=== PATIENT | female | born 1990 | race African-American/Black ===

== ENCOUNTER 2017-07-19 19:14 | Inpatient (IN) | payer MEDICAID ==
[~2017-07-19] VITALS: Ht 160 cm; Wt 78.9 kg
[2017-07-19 19:15] VITALS: BP_SYST 110; BP_SYST 124; BP_DIAS 62; BP_DIAS 76
[2017-07-19 19:20] VITALS: BP 117/63
[2017-07-19 19:25] VITALS: BP 112/52
[2017-07-19 20:07] LABS: BASOPHILS % (AUTO) 0.4 % (0.0-2.0); EOSINOPHILS % (AUTO) 0.4 % (0.0-3.0); HEMATOCRIT 29.1 % (37.0-47.0); HEMOGLOBIN 9.1 G/DL (12.0-16.0); LYMPHOCYTES % (AUTO) 20.9 % (20.0-45.0); MEAN CORPUSCULAR VOLUME 93 FL (80-99); MONOCYTES % (AUTO) 6.3 % (1.0-10.0); NEUTROPHILS % (AUTO) 72.1 % (45.0-75.0); PLATELET COUNT 169 K/UL (150-450); RED BLOOD COUNT 3.14 M/UL (4.20-5.40); RED CELL DISTRIBUTION WIDTH 11.5 % (11.6-14.8); WHITE BLOOD COUNT 8.2 K/UL (4.8-10.8)
[2017-07-19 20:13] LABS: APPEARANCE,URINE CLEAR; BILIRUBIN, URINE NEGATIVE (NEGATIVE); COLOR,URINE PALE YELLOW; GLUCOSE, URINE (UA) NEGATIVE (NEGATIVE); KETONES,URINE 1+ (NEGATIVE); LEUKOCYTE ESTERASE ,URINE NEGATIVE (NEGATIVE); NITRITE,URINE NEGATIVE (NEGATIVE); PH,URINE 6 (4.5-8.0); PROTEIN,URINE NEGATIVE (NEGATIVE); UROBILINOGEN,URINE NORMAL MG/DL (0.0-1.0)
[2017-07-19 20:26] LABS: ANION GAP 7 mmol/L (5-15); BLOOD UREA NITROGEN 38 mg/dL (7-18); CALCIUM 7.1 MG/DL (8.5-10.1); CARBON DIOXIDE 24 MMOL/L (21-32); CHLORIDE 107 MMOL/L (98-107); POTASSIUM 3.8 MMOL/L (3.5-5.1); SODIUM 138 MMOL/L (136-145)
[2017-07-19 20:30] LABS: ALANINE AMINOTRANSFERASE 15 U/L (12-78); ALBUMIN 3.1 G/DL (3.4-5.0); ALBUMIN/GLOBULIN RATIO 1.1 (1.0-2.7); ALKALINE PHOSPHATASE 57 U/L (46-116); ASPARTATE AMINO TRANSFERASE 14 U/L (15-37); BILIRUBIN,TOTAL 0.4 MG/DL (0.2-1.0); CREATINE KINASE 161 U/L (26-308)
[2017-07-19 21:15] VITALS: BP 117/63
--- NOTE | 2017-07-19 22:41 | Emergency Room Report ---
History of Present Illness General Chief Complaint: Syncope Source: Patient, Family Member, EMS Present Illness HPI The patient presents with near syncope. She had just urinated and started to feel dizziness on the toilet with a hot feeling in her face. She got up and things went black for her but then she laid down and came to immediately. She' s had syncope in the past after urinating. Today she's been vomiting blood and has been having loose dark stools. She denies any epigastric pain. She's status post gastric bypass surgery. She apparently had an iron infusion in the last few months. 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 The patient denies any dyspnea chest pain, palpitations, dysuria. Her last period was normal. Slight headache 5/10, aching, diffuse and not radiating. Denies diabetes, HTN. Allergies: Coded Allergies: SULFA (SULFONAMIDE ANTIBIOTICS) (Verified Allergy, Unknown, 07/19/17) Patient History Past Medical History: see triage record Past Surgical History: other - Gastric bypass with revision 2015 Social History: Denies: smoking, alcohol use, drug use Social History Narrative with family Last Menstrual Period: 2 weeks Now: No Reviewed Nursing Documentation: PMH: Agreed, PSxH: Agreed Nursing Documentation-PMH Past Medical History: No Stated History Review of Systems All Other Systems: negative except mentioned in HPI Physical Exam Vital Signs Date Time Temp Pulse Resp B/P (MAP) Pulse Ox O2 Delivery O2 Flow Rate FiO2 07/19/17 19:10 98.4 102 14 110/76 99 Room Air Sp02 EP Interpretation: reviewed, normal General Appearance: well appearing, no apparent distress, GCS 15 Head: normocephalic Eyes: bilateral eye normal inspection, bilateral eye PERRL, bilateral eye EOMI ENT: moist mucus membranes Neck: supple Respiratory: lungs clear, normal breath sounds Cardiovascular #1: regular rate, rhythm Cardiovascular #2: 2+ radial (R) Gastrointestinal: normal inspection, normal bowel sounds, non tender, no mass, non-distended Rectal: other - refused rectal Genitourinary: no CVA tenderness Musculoskeletal: back normal, gait/station normal, normal range of motion Neurologic: alert, oriented x3, motor strength/tone normal, sensory intact, cerebellar normal, normal gait, speech normal Psychiatric: mood/affect normal Skin: normal inspection, warm/dry Medical Decision Making Diagnostic Impression: Primary Impression: Near syncope Additional Impressions: GI bleed Qualified Codes: K92.2 - Gastrointestinal hemorrhage, unspecified Anemia Qualified Codes: D64.9 - Anemia, unspecified History of gastric bypass ER Course The patient presents with near syncope while urinating with h/o vomiting blood. Differential includes GI bleed, post micturition syncope, vasovagal arrhythmia versus others. The patient will be evaluated EKG, chest x-ray, laboratory. The patient was treated with IV hydration. Non-focal neurologic exam, CT not indicated. EKG is unremarkable. H&H is quite substantially lower than previous. The patient is reluctant and refuses a rectal exam. She also has not given us a stool sample. History of vomiting blood will be treated with Pepcid. Second H&H's dropped substantially with near syncope - the patient is admitted into the hospital to make sure GI bleed is stabilized. As VS stable and not vomiting blood, will hold off on transfusion. Although risks and benefits explained to patient and mother (she has had transfusions around her surgery in the past). Discussed that if VS unstable or H/H with severe drop, might need transfusion. Treated with protonix also. MOSS treated with tylenol with improvement. Admit med Dr. Awad. Laboratory Tests Test 07/19/17 19:40 White Blood Count 8.2 K/UL (4.8-10.8) Red Blood Count 3.14 M/UL (4.20-5.40) L Hemoglobin 9.1 G/DL (12.0-16.0) L Hematocrit 29.1 % (37.0-47.0) L Mean Corpuscular Volume 93 FL (80-99) Mean Corpuscular Hemoglobin 29.0 PG (27.0-31.0) Mean Corpuscular Hemoglobin Concent 31.3 G/DL (32.0-36.0) L Red Cell Distribution Width 11.5 % (11.6-14.8) L Platelet Count 169 K/UL (150-450) Mean Platelet Volume 7.6 FL (6.5-10.1) Neutrophils (%) (Auto) 72.1 % (45.0-75.0) Lymphocytes (%) (Auto) 20.9 % (20.0-45.0) Monocytes (%) (Auto) 6.3 % (1.0-10.0) Eosinophils (%) (Auto) 0.4 % (0.0-3.0) Basophils (%) (Auto) 0.4 % (0.0-2.0) Prothrombin Time 10.9 SEC (9.30-11.50) Prothrombin Time INR 1.0 (0.9-1.1) PTT 23 SEC (23-33) Urine Color Pale yellow Urine Appearance Clear Urine pH 6 (4.5-8.0) Urine Specific [place] 1.010 (1.005-1.035) Urine Protein Negative (NEGATIVE) Urine Glucose (UA) Negative (NEGATIVE) Urine Ketones 1+ (NEGATIVE) H Urine Occult Blood Negative (NEGATIVE) Urine Nitrite Negative (NEGATIVE) Urine Bilirubin Negative (NEGATIVE) Urine Urobilinogen Normal MG/DL (0.0-1.0) Urine Leukocyte Esterase Negative (NEGATIVE) Urine HCG, Qualitative Negative Sodium Level 138 MMOL/L (136-145) Potassium Level 3.8 MMOL/L (3.5-5.1) Chloride Level 107 MMOL/L (98-107) Carbon Dioxide Level 24 MMOL/L (21-32) Anion Gap 7 mmol/L (5-15) Blood Urea Nitrogen 38 mg/dL (7-18) H Creatinine 1.0 MG/DL (0.55-1.30) Estimate Glomerular Filtration Rate > 60 mL/min (>60) Glucose Level 92 MG/DL (74-106) Calcium Level 7.1 MG/DL (8.5-10.1) L Total Bilirubin 0.4 MG/DL (0.2-1.0) Aspartate Amino Transferase (AST) 14 U/L (15-37) L Alanine Aminotransferase (ALT) 15 U/L (12-78) Alkaline Phosphatase 57 U/L (46-116) Total Creatine Kinase 161 U/L (26-308) Troponin I 0.007 ng/mL (0.000-0.056) Total Protein 5.9 G/DL (6.4-8.2) L Albumin 3.1 G/DL (3.4-5.0) L Globulin 2.8 g/dL Albumin/Globulin Ratio 1.1 (1.0-2.7) Urine Opiates Screen Negative (NEGATIVE) Urine Barbiturates Screen Negative (NEGATIVE) Phencyclidine (PCP) Screen Negative (NEGATIVE) Urine Amphetamines Screen Negative (NEGATIVE) Urine Benzodiazepines Screen Negative (NEGATIVE) Urine Cocaine Screen Negative (NEGATIVE) Urine Marijuana (THC) Screen Negative (NEGATIVE) EKG Diagnostic Results Rate: normal Rhythm: NSR ST Segments: no acute changes Rhythm Strip Diag. Results EP Interpretation: yes Rhythm: NSR, no PVC's, no ectopy Last Vital Signs Date Time Temp Pulse Resp B/P (MAP) Pulse Ox O2 Delivery O2 Flow Rate FiO2 07/20/17 04:00 97.9 75 21 106/56 100 07/19/17 23:55 Room Air Status: improved Disposition: ADMITTED INPATIENT Condition: Serious Referrals: JENNIFER DESHPANDE,REFERRING (PCP) Julio Cesar Leiva M.D. Jul 19, 2017 22:40
[2017-07-19] MEDS ORDERED: EXCEDRIN MIGRA1 EAC1 PO (23:06)
[2017-07-19 23:15] VITALS: BP 111/71
[2017-07-19 23:15] LABS: BASOPHILS % (AUTO) 0.5 % (0.0-2.0); EOSINOPHILS % (AUTO) 0.3 % (0.0-3.0); HEMATOCRIT 25.7 % (37.0-47.0); HEMOGLOBIN 8.6 G/DL (12.0-16.0); LYMPHOCYTES % (AUTO) 33.3 % (20.0-45.0); MEAN CORPUSCULAR VOLUME 92 FL (80-99); MONOCYTES % (AUTO) 7.4 % (1.0-10.0); NEUTROPHILS % (AUTO) 58.4 % (45.0-75.0); PLATELET COUNT 165 K/UL (150-450); RED BLOOD COUNT 2.81 M/UL (4.20-5.40); WHITE BLOOD COUNT 6.6 K/UL (4.8-10.8)
[2017-07-19 23:55] VITALS: BP 117/62
[2017-07-20] VITALS: BP 115/68
[2017-07-20 04:00] VITALS: BP 106/56
[2017-07-20] MEDS ORDERED: Pantoprazole Inj IVP STA (07:03)
[2017-07-20] MEDS ORDERED: D5 1/2NS 1,000 ML IV SCH (07:30)
[2017-07-20] MEDS ORDERED: Morphine Sulfate 2mg/ml Inj IVP PRN (07:30)
[2017-07-20] MEDS ORDERED: Metoclopramide 10mg/2ml Inj IVP PRN (07:30)
[2017-07-20] MEDS ORDERED: LORazepam Inj 2mg/ml 1ml IV PRN (07:30)
[2017-07-20] MEDS ORDERED: Mylanta II UD 30ml ORAL PRN (07:30)
[2017-07-20] MEDS ORDERED: Nitroglycerin Subl 0.4mg tab SL PRN (07:30)
[2017-07-20 08:00] VITALS: BP 102/52
--- NOTE | 2017-07-20 08:10 | General Progress Note ---
Assessment/Plan Problem List: (1) GI bleed ICD Codes: K92.2 - Gastrointestinal hemorrhage, unspecified SNOMED: 46725832 Qualifiers: Qualified Codes: K92.2 - Gastrointestinal hemorrhage, unspecified (2) Anemia ICD Codes: D64.9 - Anemia, unspecified SNOMED: 192129825 Qualifiers: Qualified Codes: D64.9 - Anemia, unspecified (3) Near syncope ICD Codes: R55 - Syncope and collapse SNOMED: 749967188 (4) History of gastric bypass ICD Codes: Z98.84 - Bariatric surgery status SNOMED: 975050260 Assessment/Plan ppi transfuse if hgb less than 7 EGD in am Subjective ROS Limited/Unobtainable: Yes Allergies: Coded Allergies: SULFA (SULFONAMIDE ANTIBIOTICS) (Verified Allergy, Unknown, 07/19/17) Subjective no event Objective Last 24 Hour Vital Signs Date Time Temp Pulse Resp B/P (MAP) Pulse Ox O2 Delivery O2 Flow Rate FiO2 07/20/17 04:00 97.9 75 21 106/56 100 07/20/17 00:00 97.8 74 21 115/68 100 07/19/17 23:55 98.2 88 16 117/62 99 Room Air 07/19/17 23:55 98.4 88 16 117/62 99 Room Air 07/19/17 23:33 98.4 07/19/17 23:15 98.4 82 18 111/71 99 Room Air 07/19/17 21:15 98.4 80 16 117/63 99 Room Air 07/19/17 19:25 112/52 07/19/17 19:20 16 117/63 07/19/17 19:15 98.4 76 14 110/76 99 Room Air 07/19/17 19:15 98.4 81 18 124/62 99 Room Air 07/19/17 19:10 98.4 102 14 110/76 99 Room Air Intake and Output 07/19/17 07/20/17 19:00 07:00 Intake Total 1000 ml Balance 1000 ml Intake IV Total 1000 ml # Voids 3 # Bowel Movements 1 Laboratory Tests 07/19/17 19:40: White Blood Count 8.2, Red Blood Count 3.14L, Hemoglobin 9.1L, Hematocrit 29.1L , Mean Corpuscular Volume 93, Mean Corpuscular Hemoglobin 29.0, Mean Corpuscular Hemoglobin Concent 31.3L, Red Cell Distribution Width 11.5L, Platelet Count 169, Mean Platelet Volume 7.6, Neutrophils (%) (Auto) 72.1, Lymphocytes (%) (Auto) 20.9, Monocytes (%) (Auto) 6.3, Eosinophils (%) (Auto) 0.4, Basophils (%) (Auto) 0.4, Prothrombin Time 10.9, Prothromb Time International Ratio 1.0, Activated Partial Thromboplast Time 23, Urine Color Pale yellow, Urine Appearance Clear, Urine pH 6, Urine Specific [place] 1.010, Urine Protein Negative, Urine Glucose (UA) Negative, Urine Ketones 1+H, Urine Occult Blood Negative, Urine Nitrite Negative, Urine Bilirubin Negative, Urine Urobilinogen Normal, Urine Leukocyte Esterase Negative, Urine HCG, Qualitative Negative, Sodium Level 138, Potassium Level 3.8, Chloride Level 107, Carbon Dioxide Level 24, Anion Gap 7, Blood Urea Nitrogen 38H, Creatinine 1.0, Estimat Glomerular Filtration Rate > 60, Glucose Level 92, Calcium Level 7.1L, Total Bilirubin 0.4, Aspartate Amino Transf (AST/SGOT) 14L, Alanine Aminotransferase ( ALT/SGPT) 15, Alkaline Phosphatase 57, Total Creatine Kinase 161, Troponin I 0.007, Total Protein 5.9L, Albumin 3.1L, Globulin 2.8, Albumin/Globulin Ratio 1.1, Urine Opiates Screen Negative, Urine Barbiturates Screen Negative, Phencyclidine (PCP) Screen Negative, Urine Amphetamines Screen Negative, Urine Benzodiazepines Screen Negative, Urine Cocaine Screen Negative, Urine Marijuana (THC) Screen Negative 07/19/17 22:50: White Blood Count 6.6, Red Blood Count 2.81L, Hemoglobin 8.6L, Hematocrit 25.7L , Mean Corpuscular Volume 92, Mean Corpuscular Hemoglobin 30.7, Mean Corpuscular Hemoglobin Concent 33.5, Red Cell Distribution Width 12.0, Platelet Count 165, Mean Platelet Volume 8.1, Neutrophils (%) (Auto) 58.4, Lymphocytes (% ) (Auto) 33.3, Monocytes (%) (Auto) 7.4, Eosinophils (%) (Auto) 0.3, Basophils ( %) (Auto) 0.5 Height (Feet): 5 Height (Inches): 3.00 Weight (Pounds): 174 General Appearance: alert EENT: normal ENT inspection Neck: supple Cardiovascular: normal rate Respiratory/Chest: lungs clear Abdomen: normal bowel sounds, non tender, soft JANETH RANGEL Jul 20, 2017 08:10
--- NOTE | 2017-07-20 08:41 | History and Physical ---
History of Present Illness General Date patient seen: Jul 20, 2017 Time patient seen: 08:00 Reason for Hospitalization: pre-syncope Present Illness HPI 27 y/old female with hx of gastric bypass presented after near syncopal episode at home Patient reported being lightheaded and dizzy, hot flushes in the face, almost blackout in the bathroom, reported vomiting with hematemesis and dark loose stool patient was treated in the past for anemia with IV infusion denied f/c/ denied abdominal pain no CP no SOB admitted to 11/20 in ED VSS were stable , BP 110/76 anemic-9.1/29.1 UA negative, urine test negative urine tox screen negative no leukocytosis, elevated BUN-38 patient [facility] Allergies: Coded Allergies: SULFA (SULFONAMIDE ANTIBIOTICS) (Verified Allergy, Unknown, 07/19/17) Medication History Scheduled Aspirin/Acetaminophen/Caffeine (Excedrin Migraine Caplet), 1 EACH PO BID, ( Reported) Patient History History Provided By: Patient Healthcare decision maker self Resuscitation status Advanced Directive on File Past Medical/Surgical History Past Medical/Surgical History: (1) History of gastric bypass (2) Anemia Review of Systems Constitutional: Reports: weakness Eye: Reports: no symptoms ENT: Reports: no symptoms Respiratory: Reports: no symptoms Cardiovascular: Reports: no symptoms Gastrointestinal: Reports: see HPI Genitourinary: Reports: no symptoms Musculoskeletal: Reports: no symptoms Skin: Reports: no symptoms Psychiatric: Reports: no symptoms Neurological: Reports: see HPI Endocrine: Reports: no symptoms Hematologic/Lymphatic: Reports: anemia Physical Exam General Appearance: no apparent distress, alert Lines, tubes and drains: peripheral HEENT: normocephalic, atraumatic, anicteric Neck: non-tender, supple Respiratory/Chest: lungs clear, no respiratory distress, no accessory muscle use Cardiovascular/Chest: normal peripheral pulses, normal rate, regular rhythm, no JVD Abdomen: normal bowel sounds, non tender, soft Extremities: normal range of motion, non-tender, no calf tenderness, normal capillary refill Skin Exam: warm/dry Neurologic: heading maker II-XII grossly normal, no motor/sensory deficits, alert, oriented x 3, responsive, normal mood/affect Musculoskeletal: normal muscle bulk Last 24 Hour Vital Signs Date Time Temp Pulse Resp B/P (MAP) Pulse Ox O2 Delivery O2 Flow Rate FiO2 07/20/17 08:00 97.9 76 19 102/52 100 07/20/17 04:00 97.9 75 21 106/56 100 07/20/17 00:00 97.8 74 21 115/68 100 07/19/17 23:55 98.2 88 16 117/62 99 Room Air 07/19/17 23:55 98.4 88 16 117/62 99 Room Air 07/19/17 23:33 98.4 07/19/17 23:15 98.4 82 18 111/71 99 Room Air 07/19/17 21:15 98.4 80 16 117/63 99 Room Air 07/19/17 19:25 112/52 07/19/17 19:20 16 117/63 07/19/17 19:15 98.4 76 14 110/76 99 Room Air 07/19/17 19:15 98.4 81 18 124/62 99 Room Air 07/19/17 19:10 98.4 102 14 110/76 99 Room Air Intake and Output 07/19/17 07/20/17 19:00 07:00 Intake Total 1000 ml Balance 1000 ml Intake IV Total 1000 ml # Voids 3 # Bowel Movements 1 Laboratory Tests Test 07/19/17 19:40 07/19/17 22:50 White Blood Count 8.2 K/UL (4.8-10.8) 6.6 K/UL (4.8-10.8) Red Blood Count 3.14 M/UL (4.20-5.40) L 2.81 M/UL (4.20-5.40) L Hemoglobin 9.1 G/DL (12.0-16.0) L 8.6 G/DL (12.0-16.0) L Hematocrit 29.1 % (37.0-47.0) L 25.7 % (37.0-47.0) L Mean Corpuscular Volume 93 FL (80-99) 92 FL (80-99) Mean Corpuscular Hemoglobin 29.0 PG (27.0-31.0) 30.7 PG (27.0-31.0) Mean Corpuscular Hemoglobin Concent 31.3 G/DL (32.0-36.0) L 33.5 G/DL (32.0-36.0) Red Cell Distribution Width 11.5 % (11.6-14.8) L 12.0 % (11.6-14.8) Platelet Count 169 K/UL (150-450) 165 K/UL (150-450) Mean Platelet Volume 7.6 FL (6.5-10.1) 8.1 FL (6.5-10.1) Neutrophils (%) (Auto) 72.1 % (45.0-75.0) 58.4 % (45.0-75.0) Lymphocytes (%) (Auto) 20.9 % (20.0-45.0) 33.3 % (20.0-45.0) Monocytes (%) (Auto) 6.3 % (1.0-10.0) 7.4 % (1.0-10.0) Eosinophils (%) (Auto) 0.4 % (0.0-3.0) 0.3 % (0.0-3.0) Basophils (%) (Auto) 0.4 % (0.0-2.0) 0.5 % (0.0-2.0) Prothrombin Time 10.9 SEC (9.30-11.50) Prothromb Time International Ratio 1.0 (0.9-1.1) Activated Partial Thromboplast Time 23 SEC (23-33) Urine Color Pale yellow Urine Appearance Clear Urine pH 6 (4.5-8.0) Urine Specific [place] 1.010 (1.005-1.035) Urine Protein Negative (NEGATIVE) Urine Glucose (UA) Negative (NEGATIVE) Urine Ketones 1+ (NEGATIVE) H Urine Occult Blood Negative (NEGATIVE) Urine Nitrite Negative (NEGATIVE) Urine Bilirubin Negative (NEGATIVE) Urine Urobilinogen Normal MG/DL (0.0-1.0) Urine Leukocyte Esterase Negative (NEGATIVE) Urine HCG, Qualitative Negative Sodium Level 138 MMOL/L (136-145) Potassium Level 3.8 MMOL/L (3.5-5.1) Chloride Level 107 MMOL/L (98-107) Carbon Dioxide Level 24 MMOL/L (21-32) Anion Gap 7 mmol/L (5-15) Blood Urea Nitrogen 38 mg/dL (7-18) H Creatinine 1.0 MG/DL (0.55-1.30) Estimat Glomerular Filtration Rate > 60 mL/min (>60) Glucose Level 92 MG/DL (74-106) Calcium Level 7.1 MG/DL (8.5-10.1) L Total Bilirubin 0.4 MG/DL (0.2-1.0) Aspartate Amino Transf (AST/SGOT) 14 U/L (15-37) L Alanine Aminotransferase (ALT/SGPT) 15 U/L (12-78) Alkaline Phosphatase 57 U/L (46-116) Total Creatine Kinase 161 U/L (26-308) Troponin I 0.007 ng/mL (0.000-0.056) Total Protein 5.9 G/DL (6.4-8.2) L Albumin 3.1 G/DL (3.4-5.0) L Globulin 2.8 g/dL Albumin/Globulin Ratio 1.1 (1.0-2.7) Urine Opiates Screen Negative (NEGATIVE) Urine Barbiturates Screen Negative (NEGATIVE) Phencyclidine (PCP) Screen Negative (NEGATIVE) Urine Amphetamines Screen Negative (NEGATIVE) Urine Benzodiazepines Screen Negative (NEGATIVE) Urine Cocaine Screen Negative (NEGATIVE) Urine Marijuana (THC) Screen Negative (NEGATIVE) Height (Feet): 5 Height (Inches): 3.00 Weight (Pounds): 174 Medications Current Medications Medications (Trade) Dose Ordered Sig/Des Route PRN Reason Start Time Stop Time Status Last Admin Dose Admin Acetaminophen (Tylenol) 650 mg Q4H PRN ORAL T>100.5 07/20/17 07:30 08/19/17 07:29 07/20/17 08:00 Al Hydroxide/Mg Hydroxide (Mylanta II) 30 ml Q6H PRN ORAL dyspepsia 07/20/17 07:30 08/19/17 07:29 Dextrose (Dextrose 50%) STAT PRN IV Hypoglycemia 07/20/17 07:30 08/19/17 07:29 Dextrose/Sodium Chloride 1,000 ml @ 75 mls/hr [id number] IV 07/20/17 07:30 08/19/17 07:29 07/20/17 08:04 Diphenhydramine HCl (Benadryl) 25 mg Q6H PRN ORAL Itching/Pruritis 07/20/17 07:30 08/19/17 07:29 Heparin Sodium (Porcine) (Heparin 5000 units/ml) 5,000 units EVERY 12 HOURS SUBQ 07/20/17 09:00 08/19/17 08:59 Lorazepam (Ativan 2mg/ml 1ml) 1 mg Q4H PRN IV agitation 07/20/17 07:30 07/27/17 07:29 Morphine Sulfate (Morphine Sulfate) 2 mg Q4H PRN IVP Severe Pain (Pain Scale 7-10) 07/20/17 07:30 07/27/17 07:29 Nitroglycerin (Ntg) 0.4 mg Q5M X 3 DOSES PRN SL Prn Chest Pain 07/20/17 07:30 08/19/17 07:29 Ondansetron HCl (Zofran) 4 mg Q6H PRN IVP Nausea & Vomiting 07/20/17 07:30 08/19/17 07:29 Pantoprazole (Protonix) 40 mg DAILY IV 07/20/17 09:00 08/19/17 08:59 Polyethylene Glycol (Miralax) 17 gm HSPRN PRN ORAL Constipation 07/20/17 21:00 08/19/17 20:59 Promethazine HCl (Phenergan) 25 mg Q8H PRN IV refractory nausea 07/20/17 07:30 08/19/17 07:29 Temazepam (Restoril) 15 mg HSPRN PRN ORAL Insomnia 07/20/17 21:00 07/27/17 20:59 Assessment/Plan Assessment/Plan ASSESSMENT near syncope GI bleeding anemia dehydration hx of gastric bypass obesity PLAN OF CARE MS floor GI eval CL as tolerated IVF , increase rate to 100, monitor renal parameters, lytes anemia w/up GI eval appreciated EGD planned for am monitor HH, transfuse if Hgb below 8, this am HH down to 8.6/25.7 GI prophayxlis abdominal US pain maanegemtn bowel regimen ADDENDUM: at a500 was informed that patient wants to sign AMA discussed with pt and her mother the risks and consequences against signing AMA explained the need for GI procedure patient verbalized understanding patient is concerned, will transfer to tele for monitoring , dizziness, lightheadedness patient agree with plan BP stable, the lowest - 102/52 case discussed and evaluated by supervising physician Priti Mosher NP ([place]) Jul 20, 2017 08:41
[2017-07-20] MEDS ORDERED: Pantoprazole Inj IV SCH (09:00)
[2017-07-20] MEDS: Heparin 5000 units/ml inj SUBQ SCH ×2 (09:02→21:15)
[2017-07-20] MEDS: Norco 5mg/325mg tab ORAL PRN ×2 (10:59→21:19)
[2017-07-20 12:00] VITALS: BP 109/56
[2017-07-20] MEDS: D5 1/2NS 1,000 ML IV SCH (17:34)
[2017-07-20 21:00] VITALS: BP 120/65
[2017-07-20] MEDS ORDERED: Miralax 17gm pkt ORAL PRN (21:00)
[2017-07-21] VITALS: BP 114/61
[2017-07-21] MEDS: D5 1/2NS 1,000 ML IV SCH (02:49)
[2017-07-21 04:28] VITALS: BP 105/56
[2017-07-21 05:31] LABS: HEMATOCRIT 22.2 % (37.0-47.0); HEMOGLOBIN 7.4 G/DL (12.0-16.0); MEAN CORPUSCULAR VOLUME 93 FL (80-99); PLATELET COUNT 142 K/UL (150-450); RED BLOOD COUNT 2.38 M/UL (4.20-5.40); WHITE BLOOD COUNT 5.1 K/UL (4.8-10.8)
[2017-07-21 05:48] LABS: ALANINE AMINOTRANSFERASE 21 U/L (12-78); ALBUMIN 2.8 G/DL (3.4-5.0); ALBUMIN/GLOBULIN RATIO 1.1 (1.0-2.7); ALKALINE PHOSPHATASE 52 U/L (46-116); AMYLASE 59 U/L (25-115); ANION GAP 5 mmol/L (5-15); ASPARTATE AMINO TRANSFERASE 18 U/L (15-37); BILIRUBIN,TOTAL 0.1 MG/DL (0.2-1.0); BLOOD UREA NITROGEN 9 mg/dL (7-18); CALCIUM 7.1 MG/DL (8.5-10.1); CARBON DIOXIDE 27 MMOL/L (21-32); CHLORIDE 109 MMOL/L (98-107); CREATININE 0.9 MG/DL (0.55-1.30); POTASSIUM 3.6 MMOL/L (3.5-5.1); SODIUM 141 MMOL/L (136-145)
[2017-07-21] MEDS ORDERED: NS 500ML ONE (06:27)
[2017-07-21 06:42] LABS: % IRON SATURATION 39 % (15-50); IRON 65 ug/dL (50-175); TOTAL IRON BINDING CAPACITY 168 ug/dL (250-450)
[2017-07-21 07:20] LABS: FERRITIN 146 NG/ML (8-388)
[2017-07-21] MEDS ORDERED: Pantoprazole Inj IV SCH (09:00)
--- NOTE | 2017-07-21 21:47 | Diagnostic Imaging Report ---
Indication:Abdominal pain Technique: Grayscale and duplex Doppler imaging of the abdomen performed. Comparison: None Findings: The liver, demonstrated part of the gallbladder, aorta and IVC, both kidneys, spleen appear unremarkable. There is fullness in the area of the pancreatic head. Consider CT or MR for further evaluation. There is no biliary ductal dilatation identified. CBD is 4 mm. Doppler evaluation of the main portal vein shows patency. There is no ascites. No hydronephrosis seen. Impression: Questionable fullness in the area of the pancreatic head. Please correlate clinically for. For example pancreatitis. Consider MR or CT follow-up.
--- NOTE | 2017-07-21 23:59 | Cardiology Report ---
APPROVED REPORT EKG Measurement Heart [id number] MD [id number] Normal sinus rhythm Normal ECG
--- NOTE | 2017-07-22 15:31 | Diagnostic Imaging Report ---
Indication: Chest pain Technique: XRAY Chest 1v Comparison: None Findings: Cardiomediastinal silhouette is within normal limits. There is no consolidation or pleural effusion. Osseous structures demonstrate no acute abnormality. Impression: No acute cardiopulmonary disease.
--- NOTE | 2017-07-23 22:02 | Discharge Summary ---
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
--- NOTE | 2017-07-24 20:30 | Discharge Summary 2 SIG ---
DATE OF ADMISSION: 07/19/2017 DATE OF SIGNING AGAINST MEDICAL ADVICE: 07/21/2017. REASON FOR ADMISSION: 27-year-old female with history of gastric bypass, presented after near syncopal episode at home. The patient reported being lightheaded and dizzy, hot flashes in the face, almost blacked out in the bathroom, reported vomiting with hematemesis, and dark loose stool. The patient was treated in the past for anemia with intravenous iron infusion. The patient denied fever or chills. Denied abdominal pain. No chest pain. No shortness of breath. She admitted to have headache /10 in the emergency department. Vital signs were stable. Blood pressure -110/76. The patient was anemic on presentation, hemoglobin -9.1 and hematocrit -29.1. Urinalysis was negative. Urine test was negative. Urine tox screen was negative. No leukocytosis. Elevated BUN of 38. EKG revealed normal sinus rhythm. The patient was transferred to [facility]Surg floor with diagnosis of GI bleeding, anemia,near syncope, dehydration, history of gastric bypass, and obesity. HOSPITAL COURSE: The patient was admitted initially to Med/Surg floor. GI consult was requested. The patient was on clear liquids diet as tolerated. The patient was on the IV fluids initially at 75 mL per hour and later increased to 100 ml/hr. Renal parameters and electrolytes were closely monitored. Anemia workup initiated. GI seen and evaluated the patient in the morning and EGD was planned for Friday. Hemoglobin and hematocrit were closely monitored with goal to transfuse if hemoglobin below 8. Next morning, hemoglobin down to 8.6 and hematocrit- 25.7. GI prophylaxis provided. Pain management was provided. Bowel regimen was instituted. Abdominal ultrasound revealed questionable fullness in the area of pancreatic head. Amylase and lipase were within normal limits. LFTs were within normal limits. Anemia workup revealed stable iron. Troponin was negative. At around 1500 hours on 07/20/2017, the patient decided to sign against medical advice. The patient was explained at that time the risks and consequences of signing against medical advice. The patient was concerned about her condition. The patient was transferred to telemetry floor for monitoring due to the dizziness and lightheadedness. Blood pressure was stable, the lowest 102/52. Telemetry demonstrated sinus rhythm. The patient agreed with the plan to transfer and will wait for EGD planned for the morning. Late at night the patient asked for pain medication and a sleeping pill, which were provided. After that, she requested another pain medication, which was provided for her as well. On electrical wirer the patient decided that she wants to sign against medical advice. Again, the risks and consequences were explained at this time by the nursing staff. The patient verbalized understanding, declined to sign AMA form and left. FINAL DIAGNOSES: 1. Near syncope. 2. Gastrointestinal bleeding. 3. Anemia. 4. Dehydration. 5. History of gastric bypass. 6. Obesity. Timothy Awad M.D. I Priti WootenLong Island College HospitalSoo N.PNew DR: NICO JOB#: [id number] CC: TARA
== END 2017-07-21 06:28 | disposition left against medical advice (07) | DRG 422 ==
LOC: EDBD 19:14 → EMR 19:24 → 4E 22:45 → EDBEDREQ 23:02 → 2E 07-20 16:00
DX: E86.0 Dehydration (principal); K92.2 Gastrointestinal hemorrhage, unspecified; E66.9 Obesity, unspecified; R55 Syncope and collapse; D64.9 Anemia, unspecified; Z68.30 Body mass index [BMI] 30.0-30.9, adult; Z98.84 Bariatric surgery status; Z88.2 Allergy status to sulfonamides
CPT/HCPCS: 36415; 71045; 76700; 80053; 80307; 81003; 81025; 82150; 82270; 82550; 82728; 83540; 83550; 83690; 84484; 85025; 85610; 85730; 86850; 86900; 86901; 93005; 99285; J2405